=== PATIENT | male | born 1995 | race Caucasian/White ===

== ENCOUNTER 2016-11-20 15:12 | Emergency (ER) | payer SELFPAY ==
[2016-11-20 15:23] VITALS: BP 192/84; PULSE 105; RESP 16; TEMP 98.2; O2SAT 96
--- NOTE | 2016-11-20 15:45 | PD ---
HPI Chief Complaint: Medical Clearance Time Seen by Provider: 15:40 Travel History International Travel<30 days: No Contact w/Intl Traveler<30days: No Traveled to known affect area: No History of Present Illness HPI Patient comes in under [employer]'s act by police after being found asleep behind a [employer] with drug paraphernalia around. Patient states that he fell asleep there charging his phone after taking his Seroquel. Patient denies any medical complaints or concerns this time. Denies any chest pain, shortness breath, nausea, vomiting, abdominal pain, headache, loss or change in bowel or bladder, back pain, neck pain, or fevers. Patient states he is supposed to go take a drug test for rehabilitation house that he is trying to get back in today and he is wanting to get there in time to take the test. Patient states he was in the rehabilitation house up to 3 days ago when he had a go outside to find his ID. Patient reportedly was kicked out for 3 days and has been staying in a hotel until today when he had to leave and fell asleep behind the [employer]. PFSH Past Medical History Psychiatric: Yes (bipolar) Social History Alcohol Use: No Tobacco Use: Yes Substance Use: No (currently in rehabilitation) Review of Systems Except as stated in HPI: all other systems reviewed are Neg Physical Exam Narrative GENERAL: Well-developed, well nourished, in no acute distress, and non-ill appearing. SKIN: Focused skin assessment warm and dry. HEAD: Atraumatic. Normocephalic. EYES: Pupils equal and round. EOMI. No scleral icterus. No injection or drainage. ENT: No nasal bleeding or discharge. Mucous membranes pink and moist. NECK: Trachea midline. Supple. No nuclear rigidity. CARDIOVASCULAR: Regular rate and rhythm. No murmur appreciated. RESPIRATORY: No accessory muscle use. No respiratory distress. Clear to auscultation. Breath sounds equal bilaterally. MUSCULOSKELETAL: No obvious deformities. No clubbing. No cyanosis. No edema. Full range of motion. NEUROLOGICAL: Awake and alert. No obvious cranial nerve deficits. Motor grossly within normal limits. Normal speech. PSYCHIATRIC: Appropriate mood and affect; insight and judgment normal. Data Data Last Documented VS Vital Signs Date Time Temp Pulse Resp B/P (MAP) Pulse Ox O2 Delivery O2 Flow Rate FiO2 11/20/16 15:23 98.2 105 16 192/84 (742) 96 [facility] Medical Decision Making Medical Screen Exam Complete: Yes Emergency Medical Condition: No Differential Diagnosis Alcohol intoxication, drug intoxication, medical clearance, other Narrative Course Patient in no obvious distress upon re-evaluation. Schaefer's act will be lifted.. Any questions/concerns in reference to patient diagnosis/condition discussed and clarified prior to patient's discharge. Reinforced sheer importance of close follow up with patient's primary physician or primary care clinic and rehabilitation facility. Instructed patient to return to ED immediately, if symptoms return/worsen. Patient showed understanding of above instructions. Further instructions and recommendations were detailed in discharge paperwork. Patient ambulated without difficulty out of ED at discharge. Diagnosis Primary Impression: General medical exam Referrals: [facility] Patient Instructions: General Instructions Additional Instructions: Follow-up with your primary care physician as needed. Return to your rehabilitation facility. Return to the emergency department for any emergent concerns. Disposition: 01 DISCHARGE HOME Condition: Stable [place] Nov 20, 2016 15:45
== END 2016-11-20 16:06 | disposition home or self-care (01) ==
LOC: NEDAMB 15:12
DX: Z04.8 Encounter for examination and observation for other specified reasons (principal); Z72.0 Tobacco use
CPT/HCPCS: 99282